=== PATIENT | female | born 1965 | race Caucasian/White ===

== ENCOUNTER 2020-09-02 13:51 | Outpatient (CLI) | payer OTHER, SELFPAY ==
--- NOTE | 2020-09-02 14:19 | XR_ITS ---
WS: [id number] DEXA (DUAL ENERGY X-RAY ABSORPTIOMETRY) Bone mineral density was performed using a [employer] machine. HISTORY: SCREENING FOR OSTEOPOROSIS COMPARISON: None available. Lumbar spine BMD (L1-L4): 1.101 g/cm2 T score: -0.7 Z score: 0.1 Total hip BMD: Left: 0.899 g/cm2. T score: -0.9 Z score: -0.2 Right: 0.836 g/cm2. T score: -1.4 Z score: -0.7 10 year probability of a major osteoporotic fracture is 7%. RIGHT curvature lumbar spine. XR/XR DEXA axial skeleton* [id number] IMPRESSION: Osteopenia based upon the WHO classification for females.
== END 2020-09-02 13:52 | disposition home or self-care (01) ==
LOC: RADSHAW 13:51
PROVIDERS: PCP Nurse Practitioner Family; Visit Provider Nurse Practitioner Family
DX: Z13.820 Encounter for screening for osteoporosis (principal); Z90.722 Acquired absence of ovaries, bilateral; Z78.0 Asymptomatic menopausal state; M85.89 Other specified disorders of bone density and structure, multiple sites
CPT/HCPCS: 77080

== ENCOUNTER 2020-10-06 13:37 | Outpatient (CLI) | payer OTHER, SELFPAY ==
--- NOTE | 2020-10-06 13:45 | MM_ITS ---
WS: [id number] BILATERAL SCREENING DIGITAL MAMMOGRAM WITH CAD HISTORY: SCREENING COMPARISON: 10/06/2009 Bilateral CC and MLO views submitted. Computer aided detection analyzed. Breast composition: The breasts are heterogeneously dense, which may obscure small masses. No suspici ous masses, microcalcifications or architectural distortion. Scattered calcifications and asymmetries are stable. MM/[place] [id number] IMPRESSION: BI-RADS: 2-Benign FOLLOW UP: 1 Year Follow-up
== END 2020-10-06 13:38 | disposition home or self-care (01) ==
LOC: RADSHAW 13:42
PROVIDERS: PCP Nurse Practitioner Family; Visit Provider Nurse Practitioner Family
DX: Z12.31 Encounter for screening mammogram for malignant neoplasm of breast (principal)
CPT/HCPCS: 77067